=== PATIENT | female | born 1985 | race Caucasian/White ===

== ENCOUNTER → 2016-10-28 | Outpatient (CLI) | payer MEDICAID | END | disposition home or self-care (01) | LOC: RAD.S 11:44 | DX: M54.2 Cervicalgia (principal); M25.512 Pain in left shoulder ==

== ENCOUNTER → 2016-11-10 | Outpatient (CLI) | payer MEDICAID | END | disposition home or self-care (01) | LOC: RAD.S 10:11 | DX: M54.5 Low back pain (principal); M47.816 Spondylosis without myelopathy or radiculopathy, lumbar region ==

== ENCOUNTER 2016-11-18 11:51 | Emergency (ER) | payer MEDICAID ==
--- NOTE | 2016-11-24 08:44 | ER ---
ADMIT: 11/18/2016 RM/LOC: ER [facility] MR#: [id number] [address] [id number] KEITH PETER [address] [place] [address] Emergency Room Report SEX: F AGE: 31 : 1985 DATE: 11/18/2016 TIME: 1151 hours. Please refer to my T-sheet for complete H and P. Briefly, the patient comes in with severe back pain. She had an MRI a week ago. They were planning on doing a block, she could not get in to see her doctor. She has taken Xanax, not helping up. She comes in for evaluation. It is worse when she moves. PHYSICAL EXAMINATION: VITAL SIGNS: Stable. BACK: She has tenderness in the right lower lumbar down her leg a little bit. No neurological findings. EMERGENCY DEPARTMENT COURSE: I gave her Dilaudid 1 mg IM, 10 mg Flexeril p.o. and she was ready for discharge. ASSESSMENT: 1. Acute lumbar spasm. 2. Chronic back pain. PLAN: Follow up with Dr. De La Cruz. Return if worse. Rest, ice. [place] 5, was given 15 and Flexeril 10, I gave her 15. Efrain Vasquez MD/ liorl JOB #: [id number] CC: Efrain Vasquez MD, Attending Physician Riddhi De La Cruz MD, Family Physician
== END 2016-11-18 13:35 | disposition home or self-care (01) ==
LOC: ER 11:51
DX: M62.830 Muscle spasm of back (principal); G89.29 Other chronic pain; M54.9 Dorsalgia, unspecified; F17.210 Nicotine dependence, cigarettes, uncomplicated; Z88.1 Allergy status to other antibiotic agents; Z88.8 Allergy status to other drugs, medicaments and biological substances; Z79.899 Other long term (current) drug therapy; Z90.49 Acquired absence of other specified parts of digestive tract; Z90.710 Acquired absence of both cervix and uterus

== ENCOUNTER 2016-11-27 11:41 | Emergency (ER) | payer MEDICAID ==
--- NOTE | 2016-12-10 08:25 | ER ---
ADMIT: 11/27/2016 RM/LOC: ER [facility] MR#: [id number] [id number] [place], [place] [address] KEITH PETER [address] [place] [address] Emergency Room Report SEX: F AGE: 31 : 1985 DATE: 11/27/2016 ADDENDUM: This patient comes to the ER because she has chronic back pain. She has had pain in her back for several months. She is due to have some nerve blocks, which she is waiting to have them with the interventional radiologist. In the ER, this is a normal-type pain for her. She is able to get up in and out of sitting position, but it is difficult for her. I wrote a prescription for 12 Valium and 12 tramadol, and she is to keep her appointment for the nerve block. Please see my T-sheet. ASHLIE Prince / Dillan Harrison MD / liorl JOB #: [id number] CC: Dlilan Harrison MD, Attending Physician Riddhi De La Cruz MD, Family Physician
== END 2016-11-27 12:50 | disposition home or self-care (01) ==
LOC: ER 11:41
DX: G89.29 Other chronic pain (principal); M54.5 Low back pain; F32.9 Major depressive disorder, single episode, unspecified; F31.9 Bipolar disorder, unspecified; F41.9 Anxiety disorder, unspecified; F17.210 Nicotine dependence, cigarettes, uncomplicated; Z90.49 Acquired absence of other specified parts of digestive tract; Z88.8 Allergy status to other drugs, medicaments and biological substances; Z79.899 Other long term (current) drug therapy